=== PATIENT | female | born 1940 | race Caucasian/White ===

== ENCOUNTER 2019-08-20 12:48 | Outpatient (CLI) | payer MEDICARE ==
[2019-08-20] MEDS ORDERED: probiotic 10 PO (13:20)
[2019-08-20] MEDS ORDERED: LOVA40TA2 PO (13:20)
[2019-08-20] MEDS ORDERED: ASPI-496 PO (13:20)
[2019-08-20] MEDS ORDERED: [UNRECOGNIZED DRUG - OTHER] SQ (13:20)
[2019-08-20] MEDS ORDERED: lisinopril PO (13:20)
[2019-08-20] MEDS ORDERED: METF500T17 PO (13:20)
[2019-08-20 14:10] LABS: BASOPHILS # (AUTO) 0.03 x10^3/uL (0-0.1); BASOPHILS % (AUTO) 0 % (0-1); EOSINOPHILS # (AUTO) 0.06 x10^3/uL (0-0.4); EOSINOPHILS % (AUTO) 1 % (1-7); LYMPHOCYTES # (AUTO) 1.93 x10^3/uL (1-3.4); LYMPHOCYTES % (AUTO) 26 % (22-44); MD NO; MEAN CORPUSCULAR HEMOGLOBIN 31.8 pg (27.0-34.8); MEAN CORPUSCULAR HGB CONC 33.4 g/dL (32.4-35.8); MEAN CORPUSCULAR VOLUME 95.1 fL (80-100); MEAN PLATELET VOLUME 8.7 fL (7.4-10.4); MONOCYTES # (AUTO) 0.43 x10^3/uL (0.2-0.8); MONOCYTES % (AUTO) 6 % (2-9); NEUTROPHILS # (AUTO) 5.14 x10^3/uL (1.8-6.8); NEUTROPHILS % (AUTO) 68 % (42-75); PLATELET COUNT 223 x10^3/uL (130-400); RED BLOOD COUNT 4.56 x10^6/uL (3.82-5.3); RED CELL DISTRIBUTION WIDTH 13.5 % (9.6-15.2)
[2019-08-20 14:20] LABS: ALANINE AMINOTRANSFERASE 30 U/L (12-78); ALBUMIN 4.2 g/dL (3.4-5.0); ANION GAP 8 mmol/L (5-15); CALCIUM 9.7 mg/dL (8.5-10.1); CHLORIDE 105 mmol/L (98-107); CREATININE 0.97 mg/dL (0.55-1.02)
[2019-08-20 14:22] LABS: ALKALINE PHOSPHATASE 58 U/L (45-117); BILIRUBIN,TOTAL 0.5 mg/dL (0.2-1.0)
[2019-08-20 14:39] LABS: INTERNATIONAL NORMALIZED RATIO 0.97 (0.93-1.1); PROTHROMBIN TIME 10.2 Seconds (9.6-11.5)
== END 2019-08-20 23:59 | disposition home or self-care (01) ==
LOC: STAR 12:48
PROVIDERS: ATTEND Orthopaedic Surgery
DX: Z01.818 Encounter for other preprocedural examination (principal); M17.12 Unilateral primary osteoarthritis, left knee
CPT/HCPCS: 36415; 80053; 85025; 85610; 85730; 87081; 93005

== ENCOUNTER 2019-09-01 10:02 | Observation (INO) | payer MEDICARE ==
[~2019-09-01] VITALS: Ht 165.1 cm; Wt 61.5 kg
[~2019-09-01 10:02] MED LIST: ASPI-496 PO; EPINEPHRINE 1 MG/ML, 1ML ONE; KETOROLAC 60 MG/2 ML ONE; LOVA40TA2 PO; METF500T17 PO; ROPIvacaine/PF 0.2%, 20 ML ONE; TRANEXAMIC ACID 100 MG/ML, 10ML ONE; VANCOMYCIN 1,000 MG ONE; [UNRECOGNIZED DRUG - OTHER] SQ; lisinopril PO; probiotic 10 PO
[2019-09-01 10:37] VITALS: BP 148/80
[2019-09-01] MEDS ORDERED: GABAPENTIN 300 MG CAPSULE PO ONE (11:00)
[2019-09-01] MEDS ORDERED: ACETAMINOPHEN 500 MG TABLET PO ONE (11:00)
[2019-09-01] MEDS ORDERED: LACTATED RINGERS 1,000 ML IV SCH (11:00)
[2019-09-01] MEDS ORDERED: MIDAZOLAM 1 MG/ML, 2ML ONE (11:32)
[2019-09-01] MEDS ORDERED: FENTANYL PF 100 MCG/2ML ONE ×2 (11:32→14:52)
[2019-09-01] MEDS ORDERED: PHENYLEPHRINE 10 MG/ML ONE (12:51)
[2019-09-01] MEDS ORDERED: PROMETHAZINE 25 MG/ML, 1ML IV PRN (13:30)
[2019-09-01] MEDS ORDERED: HYDROmorphone 2 MG/ML, 1ML IVPush PRN (13:30)
[2019-09-01] MEDS ORDERED: ALBUTEROL/IPRATROPIUM 2.5MG/0.5MG, 3 ML NPPB PRN (13:30)
[2019-09-01] MEDS ORDERED: hydrALAzine 20 MG/ML, 1ML IV PRN (13:30)
[2019-09-01] MEDS ORDERED: MIDAZOLAM 1 MG/ML, 2ML IV PRN (13:30)
[2019-09-01] MEDS ORDERED: MEPERIDINE/PF 25MG/ML,1ML IVPush PRN (13:30)
[2019-09-01] MEDS ORDERED: FENTANYL PF 100 MCG/2ML IV PRN (13:30)
[2019-09-01] MEDS ORDERED: METOPROLOL 1 MG/ML, 5ML IV PRN (13:30)
[2019-09-01] MEDS ORDERED: OXYcodone 5 MG/5 ML ORAL.SOL UDC PO PRN (13:30)
[2019-09-01] MEDS ORDERED: LIDOCAINE-MPF 2% ,5ML ONE (13:53)
[2019-09-01] MEDS ORDERED: ONDANSETRON 2MG/ML, 2ML ONE (13:53)
[2019-09-01] MEDS ORDERED: DEXAMETHASONE 4 MG/ML, 1ML ONE (13:53)
[2019-09-01] MEDS ORDERED: BUPIVACAINE/PF 0.25% ONE (13:53)
[2019-09-01] MEDS ORDERED: PROPOFOL 10 MG/ML, 20ML ONE ×2 (13:53→13:56)
[2019-09-01] MEDS ORDERED: CEFAZOLIN 1,000 MG ONE (13:53)
[2019-09-01] MEDS ORDERED: HYDROmorphone 1 MG/ML, 1ML INJ IVPush PRN (14:30)
[2019-09-01] MEDS ORDERED: ONDANSETRON 2MG/ML, 2ML IVPush PRN (14:30)
[2019-09-01] MEDS ORDERED: ONDANSETRON 4 MG TABLET PO PRN (14:30)
[2019-09-01] MEDS ORDERED: OXYcodone IR 5MG TABLET PO PRN ×2 (14:30)
[2019-09-01] MEDS ORDERED: SENNA/DOCUSATE TABLET PO PRN (14:30)
[2019-09-01] MEDS ORDERED: TRANEXAMIC ACID 1,000 MG in SODIUM CHLORIDE 0.9% 100 ML IVPB ONE (14:46)
[2019-09-01] MEDS ORDERED: OXYcodone 5 MG/5 ML ORAL.SOL UDC ONE (15:01)
[2019-09-01 15:59] VITALS: BP 128/68
[2019-09-01] MEDS: INSULIN REGULAR 100 UNITS/ML, 3ML VIAL SQ-INSULIN SCH ×2 (16:00→21:59)
[2019-09-01] MEDS ORDERED: DEXAMETHASONE 4 MG/ML, 1ML IVPush ONE (16:30)
[2019-09-01] MEDS: METFORMIN MC SCH ×2 (16:30→23:00)
[2019-09-01] MEDS ORDERED: SCOPOLAMINE PATCH, 1.5MG PATCH.TD72 TD SCH (16:30)
[2019-09-01] MEDS ORDERED: ASPIRIN 81 MG TABLET EC PO SCH (16:30)
[2019-09-01] MEDS: SODIUM CHLORIDE 0.9% 1,000 ML IV SCH ×2 (16:47→23:00)
[2019-09-01] MEDS: ACETAMINOPHEN 500 MG TABLET PO SCH ×2 (16:48→22:55)
[2019-09-01 19:56] VITALS: BP 104/59
[2019-09-01] MEDS ORDERED: metFORMIN 500 MG TABLET PO SCH (21:00)
[2019-09-01] MEDS ORDERED: LOVASTATIN 40 MG TABLET PO SCH (21:00)
[2019-09-01] MEDS ORDERED: INSULIN GLARGINE 100 UNITS/ML, PEN SQ-INSULIN SCH (21:00)
[2019-09-01] MEDS: CEFAZOLIN PMX 2GM/50ML 50 ML IVPB SCH (21:59)
[2019-09-02 00:13] VITALS: BP 107/49
[2019-09-02 03:58] VITALS: BP 114/46
[2019-09-02] MEDS: ACETAMINOPHEN 500 MG TABLET PO SCH ×2 (04:51→10:58)
[2019-09-02] MEDS: CEFAZOLIN PMX 2GM/50ML 50 ML IVPB SCH (05:52)
[2019-09-02] MEDS ORDERED: DEXAMETHASONE 4 MG/ML, 5ML IVPush ONE (06:00)
[2019-09-02] MEDS ORDERED: DEXAMETHASONE 4 MG/ML, 1ML IVPush ONE (06:00)
[2019-09-02] MEDS ORDERED: ASPIRIN 81 MG TABLET EC PO SCH (06:00)
[2019-09-02 07:47] VITALS: BP 99/54
[2019-09-02] MEDS: INSULIN REGULAR 100 UNITS/ML, 3ML VIAL SQ-INSULIN SCH (07:54)
[2019-09-02] MEDS: METFORMIN MC SCH (07:54)
[2019-09-02] MEDS ORDERED: PROBIOTIC PO SCH (09:00)
[2019-09-02] MEDS ORDERED: PREGABALIN 75 MG CAPSULE PO SCH (09:00)
[2019-09-02] MEDS ORDERED: LISINOPRIL 5 MG TABLET PO SCH (09:00)
[2019-09-02 10:38] VITALS: BP 105/63
== END 2019-09-02 11:20 | disposition home or self-care (01) ==
LOC: OUT 10:02 → ORIP 14:51 → 4NE 15:53 → DCLOUNGE 09-02 11:07
PROVIDERS: ADMIT Orthopaedic Surgery; ATTEND Orthopaedic Surgery
DX: M17.12 Unilateral primary osteoarthritis, left knee (principal); E11.9 Type 2 diabetes mellitus without complications; I10 Essential (primary) hypertension; E78.5 Hyperlipidemia, unspecified; Z79.82 Long term (current) use of aspirin; Z86.718 Personal history of other venous thrombosis and embolism; Z79.899 Other long term (current) drug therapy
CPT/HCPCS: 27447; 36415; 73560; 82962; 85018; 96365; 96366; 96372; 96375; 97110; 97161; C1713; C1776; G0378; J0171; J0690; J1100; J1815; J1885; J2250; J2370; J2405; J2704; J2795; J3010; J3490; J7030; J7120; J3370